=== PATIENT | female | born 1990 | race Caucasian/White ===

== ENCOUNTER 2018-06-27 10:14 | Emergency (ER) | payer MEDICAID ==
[~2018-06-27] VITALS: Ht 160 cm; Wt 68.9 kg
[2018-06-27 10:26] VITALS: BP_SYST 126
[2018-06-27] MEDS ORDERED: CIPROFLOXACIN HCL 500 MG TABLET PO ONE (11:15)
[2018-06-27] MEDS ORDERED: DIPHENOXYLATE HCL/ATROP SULF 2.5 MG TAB PO ONE (11:15)
[2018-06-27 11:25] VITALS: BP_SYST 132
== END 2018-06-27 11:25 | disposition home or self-care (01) ==
LOC: SED 10:14
DX: R19.7 Diarrhea, unspecified (principal); R03.0 Elevated blood-pressure reading, without diagnosis of hypertension
CPT/HCPCS: 81025; 99283

== ENCOUNTER 2019-01-18 23:22 | Emergency (ER) | payer MEDICAID ==
[~2019-01-18] VITALS: Ht 160 cm; Wt 72.6 kg
[2019-01-18 23:27] VITALS: BP_SYST 130
[2019-01-19] MEDS ORDERED: KETOROLAC TROMETHAMINE 60 MG/2 ML VIAL IM ONE (00:30)
[2019-01-19 00:59] VITALS: BP_SYST 130
== END 2019-01-19 00:59 | disposition home or self-care (01) ==
LOC: SED 23:22
DX: M25.531 Pain in right wrist (principal)
CPT/HCPCS: 29125; 73110; 81025; 96372; 99283; J1885